=== PATIENT | female | born 1970 | race Caucasian/White ===

== ENCOUNTER 2016-07-10 23:41 | Emergency (ER) | payer OTHER ==
--- NOTE | ~2016-07-10 | CT71 ---
[facility] A Service of [facility] RADIOLOGY TEXT RESULTS PATIENT: ANA FLETCHER LOCATION: SED : 72 UNIT #: [id number] AGE: [address]: Chucky Jerome MD SEX: F ORDER DR: [id number] [place] [id number] MR#: [id number] Acc #: [id number] NAME: ANA FLETCHER. : 1970 SEX: F STUDY DATE/TIME: 07/10/2016 23:06 UNIT: SED ROOM: STUDY DESCRIPTION: CT Head Wo Contrast Attending Physician: Chucky Jerome M.D. Ordering Physician: Chucky Jerome M.D. Primary Care Physician: Cam Bass MEDICAL IMAGING REPORT This report is preliminary unless electronic signature is present. EXAM CT of the head without contrast, 07/10/2016 HISTORY 45-year-old female with headache today. Hypoglycemia. COMPARISON CT head, 12/05/2014 TECHNIQUE Routine unenhanced axial images performed through the brain. This CT exam was performed with one or more of the following radiation dose reduction techniques: automatic exposure control, adjustment of mA and/or kV according to patient size, and iterative reconstruction. FINDINGS No hemorrhage, acute infarction, mass lesion, or abnormal extraaxial fluid collection. No midline shift or focal mass effect. Ventricular system normal in size and configuration. No acute bony abnormality. Visualized paranasal sinuses and mastoid air cells are clear. IMPRESSION Negative unenhanced head CT. Dictated by... Selvin Burgess M.D. THIS IS AN ELECTRONICALLY VERIFIED REPORT Selvin Burgess M.D. at 07/11/2016 11:[address] [facility] A Service of [facility] RADIOLOGY TEXT RESULTS PATIENT: ANA FLETCHER LOCATION: SED : 71 UNIT #: [id number] AGE: [address]: Chucky Jerome MD SEX: F ORDER DR: TD: 07/11/2016 12:54 JOB #: [id number] MEDICAL IMAGING REPORT Page 1 of 1
--- NOTE | ~2016-07-10 | CR72 ---
[facility] A Service of [facility] & [facility] RADIOLOGY TEXT RESULTS PATIENT: ANA FLETCHER LOCATION: SED : 71 UNIT #: [id number] AGE: [address]: Chucky Jerome MD SEX: F ORDER DR: [id number] [place] [id number] E MR#: [id number] Acc #: [id number] NAME: ANA FLETCHER. : 1970 SEX: F STUDY DATE/TIME: 07/10/2016 23:19 UNIT: SED ROOM: STUDY DESCRIPTION: CR Chest Single View Portable Attending Physician: Chucky Jerome M.D. Ordering Physician: Chucky Jerome M.D. Primary Care Physician: Cam Bass MEDICAL IMAGING REPORT This report is preliminary unless electronic signature is present. EXAM Portable chest, 07/10/2016 HISTORY 45-year-old female with hypoglycemia and altered mental status today. COMPARISON None FINDINGS Frontal chest demonstrates clear lungs. No pleural effusion or pneumothorax. Heart size and mediastinum are within normal limits. Pulmonary vasculature unremarkable. Bilateral breast tissue expanders. IMPRESSION No acute cardiopulmonary findings. Dictated by... Selvin Burgess M.D. THIS IS AN ELECTRONICALLY VERIFIED REPORT Selvin Burgess M.D. at 07/11/2016 11:30 PM Zofia TD: 07/11/2016 12:55 JOB #: [id number] MEDICAL IMAGING REPORT Page 1 of 1
--- NOTE | ~2016-07-10 | EKG ---
PATIENT: ANA FLETCHER UNIT #: [id number] Ventricular Rate: 75 BPM Atrial Rate: 75 BPM P-R Interval: 132 ms QRS Duration: 86 ms Q-T Interval: 472 ms QTC Calculation(Bezet): 527 ms P [place]: 49 degrees Calculated R [place]: 81 degrees Calculated T [place]: 43 degrees Diagnosis Line: Normal sinus rhythm Diagnosis Line: Prolonged QT Baseline wander Diagnosis Line: Abnormal ECG Diagnosis Line: When compared with ECG of 19-SEP-2009 19:50, Diagnosis Line: ST elevation now present in Inferior leads Diagnosis Line: QT has lengthened Diagnosis Line: Confirmed by FLOYD ALLEN MD ([id number]) on 07/22/2016 Diagnosis Line: 7:56:27 PM INTERPRETING MD: ALEJANDRO SHELBY
[2016-07-10 22:53] LABS: BASOPHIL% 0.7 % (0-2.5); EOSINOPHIL# 0.3 X10e3 (0-0.7); EOSINOPHIL% 8.4 % (0.0-7.0); HEMATOCRIT 38.9 % (35.0-45.0); HEMOGLOBIN 12.8 gm/dL (12.0-16.0); LYMPHOCYTE# 0.7 X10e3 (1.0-3.5); LYMPHOCYTE% 19.2 % (17.0-45.0); MEAN CELL VOLUME 87.1 FL (83-96); MEAN CORPUSCULAR HEMOGLOBIN 28.6 PG (28-34); MEAN CORPUSCULAR HGB CONC 32.8 g/dL (30-36); MEAN PLATELET VOLUME 7.9 FL (6.5-11.5); MONOCYTE# 0.4 X10e3 (0-1.0); NEUTROPHIL# 2.1 X10e3 (1.5-7.1); NEUTROPHIL% 59.7 % (40-75); PLATELET COUNT 275 X10e3 (140-420); RED BLOOD COUNT 4.47 X10e (3.90-5.30); RED CELL DISTRIBUTION WIDTH 15.6 % (11.0-15.5); WHITE BLOOD COUNT 3.6 X10e3 (4.0-10.5)
[2016-07-10 22:54] LABS: DIFF IND NO
[2016-07-10 23:00] LABS: PROTHROMBIN TIME (PATIENT) 11.3 SECONDS (9.5-12.4)
[2016-07-10 23:01] LABS: POC - CKMB <1.0 ng/mL (0.0-7.9); POC - MYOGLOBIN 41.7 ng/mL (0.0-169.0); POC - TROPONIN <0.05 ng/mL (<=0.05)
[2016-07-10 23:06] LABS: URINE APPEARANCE CLEAR; URINE BILIRUBIN NEG (NEG); URINE BLOOD NEG (NEG); URINE COLOR YELLOW; URINE GLUCOSE 300 MG/DL (NORM); URINE KETONE NEG (NEG); URINE LEUKOCYTE ESTERASE NEG (NEG); URINE NITRATE NEG (NEG); URINE PH 5.5 (5-8); URINE PROTEIN NEG (NEG); URINE SPECIFIC GRAVITY 1.025 (1.003-1.035); URINE UROBILINOGEN 0.2 MG/DL (NORM)
[2016-07-10 23:07] LABS: MICRO INDICATED? NO; URINE SOURCE CATH
[2016-07-10 23:08] LABS: ALKALINE PHOSPHATASE 99 U/L (32-92); ALT (SGPT) 16 U/L (10-40); AST (SGOT) 21 U/L (10-42); BILIRUBIN,TOTAL 0.6 mg/dL (0.2-2.0); BLOOD UREA NITROGEN 14 mg/dL (9-23); CALCIUM SERUM 9.1 mg/dL (8.4-10.2); CARBON DIOXIDE 25 mmol/L (22-31); CHLORIDE 106 mmol/L (100-111); CREATININE SERUM 0.8 mg/dL (0.6-1.4); GLOM FILT RATE Estimated 89.7 mL/min (>60); GLUCOSE FASTING 95 mg/dL (70-110); PARTIAL THROMBOPLASTIN TIME 32.2 SECONDS (25.6-38.1); POTASSIUM 3.3 mmol/L (3.5-5.1); PROTEIN TOTAL SERUM 6.4 g/dL (6.0-8.3); SODIUM 141 mmol/L (135-145)
[2016-07-10 23:09] LABS: ALCOHOL BLOOD <5 mg/dL (0)
[2016-07-10 23:15] LABS: AMPHETAMINE NEG (NEG); BARBITURATES NEG (NEG); BENZODIAZEPINES NEG (NEG); COCAINE NEG (NEG); MARIJUANA NEG (NEG); OPIATES NEG (NEG); TRICYCLIC ANTIDEPRESSANTS NEG (NEG); U METHADONE NEG (NEG)
[~2016-07-10 23:41] MED LIST: "\\\"WATER PILL\\\"" PO; ALBUTEROL17 GM INH; ALPRAZOLAM PO; BACTRIM 400-801 TA1; CHANTIX1 MG BC; DICLOFENAC SODI50 MG PO; DOXYCYCLINE PO; FLEXERIL10 MG PO; HUMALOG100 U/M2; IBUPROFEN PO; IBUPROFEN800 MG PO; IMITREX25 MG PO; LANTUS100 U/ML SQ; LANTUS100 U/ML SUBQ; LANTUS100 UNITS/ SUBQ; NOVOLIN N100 U/ML INJ; NOVOLOG100 U/ML SUBQ; VIBRAMYCIN100 M1 PO; VOLTAREN75 MG PO
== END 2016-07-11 05:39 | disposition hospice, home (50) ==
LOC: SED 23:41
DX: E11.649 Type 2 diabetes mellitus with hypoglycemia without coma (principal); D70.9 Neutropenia, unspecified; T68.XXXA Hypothermia, initial encounter; Z85.3 Personal history of malignant neoplasm of breast; F17.200 Nicotine dependence, unspecified, uncomplicated
CPT/HCPCS: 36415; 70450; 71010; 80053; 80307; 81003; 82553; 82947; 83605; 83874; 84443; 84484; 85025; 85610; 85730; 87040; 93005; 96374; 96375; 96376; 99291; G0480; J2543

== ENCOUNTER 2016-09-11 02:23 | Emergency (ER) | payer OTHER | END 2016-09-11 05:46 | disposition home or self-care (01) | LOC: SED 02:23 | DX: E11.649 Type 2 diabetes mellitus with hypoglycemia without coma (principal); J02.9 Acute pharyngitis, unspecified; F17.200 Nicotine dependence, unspecified, uncomplicated; Z79.4 Long term (current) use of insulin | CPT/HCPCS: 82947; 87651; 99283 ==